=== PATIENT | female | born 1995 | race Caucasian/White ===

== ENCOUNTER 2017-12-04 19:35 | Emergency (ER) | payer BC | END 2017-12-04 20:32 | disposition home or self-care (01) | LOC: ERS 19:35 | DX: S50.861A Insect bite (nonvenomous) of right forearm, initial encounter (principal); F17.210 Nicotine dependence, cigarettes, uncomplicated; W57.XXXA Bitten or stung by nonvenomous insect and other nonvenomous arthropods, initial encounter | CPT/HCPCS: 99282 ==